=== PATIENT | female | born 1985 | race Caucasian/White ===

== ENCOUNTER 2020-03-15 15:42 | Outpatient (CLI) | payer BC ==
--- NOTE | 2020-03-15 16:24 | CT ---
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 Frontal recesses are clear. Nasal cavity is clear. Mild rightward nasal septal deviation. Bilateral tympanomastoid cavities are grossly clear. Orbits are clear. Accessory right maxillary ostium noted. 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 IMPRESSION: Paranasal sinuses are clear.
== END 2020-03-15 15:43 | disposition home or self-care (01) ==
LOC: BICCT 15:42
PROVIDERS: ATTEND Family Medicine
DX: J32.1 Chronic frontal sinusitis (principal)

== ENCOUNTER 2020-04-19 08:52 | Outpatient (CLI) | payer BC ==
--- NOTE | 2020-04-19 11:03 | MRI ---
BRAIN MRI WITH AND WITHOUT CONTRAST: DATE: 04/19/2020. COMPARISON: None. HISTORY: Hypoesthesia of skin. TECHNIQUE: Multiplanar, multisequence MR imaging of the brain is provided with and without contrast. FINDINGS: The diffusion weighted imaging demonstrates no evidence for acute infarction. Regional bone marrow signal intensity appears unremarkable. Arterial flow voids at the axial level of the skull base appear grossly unremarkable on the T2 weight ed imaging. The visualized paranasal sinuses and mastoid air cells appear well aerated. White matter demonstrates normal signal intensity on the axial T2 and FLAIR imaging. Thin section T2 weighted imaging is obtained through the skull base. This sequence demonstrates no abnormality at t he level of the cerebellopontine angle, the internal auditory canal, cochlea, vestibule, or at the le ibis of the semicircular canals on either side. Thin section post contrast imaging through the skull base demonstrates no abnormal enhancement in the region of the CP angle, IAC, cochlea, vestibule, or semicircular canals on either side. The whole brain post contrast imaging demonstrates no abnormal enhancement within the brain parenchym a. 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 IMPRESSION: Unremarkable contrast-enhanced brain MRI as detailed above. POS: [facility]
== END 2020-04-19 08:53 | disposition home or self-care (01) ==
LOC: TBSIIMAG 08:52
PROVIDERS: ATTEND Psychiatry & Neurology Neurology
DX: R20.1 Hypoesthesia of skin (principal)
CPT/HCPCS: 70553